=== PATIENT | female | born 1990 | race Two or more races ===

== ENCOUNTER 2019-06-01 10:52 | Inpatient (IN) | payer OTHER ==
[~2019-06-01] VITALS: Ht 149.9 cm; Wt 60.3 kg
[2019-06-27] MEDS ORDERED: IRON 100 PLUS1 EACH PO (06:12)
[2019-06-27] MEDS ORDERED: PRENATAL TABLE1 EAC1 PO (06:12)
== END 2019-06-29 11:07 | disposition home or self-care (01) | DRG 807 ==
LOC: LDR 06-27 05:07 → OB/GYN 06-27 17:23
PROVIDERS: ADMIT Obstetrics & Gynecology Maternal & Fetal Medicine
PROC: 10E0XZZ Delivery of Products of Conception, External Approach (ICD-10-PCS; principal; 2019-06-27)
PROC: 0UQMXZZ Repair Vulva, External Approach (ICD-10-PCS; 2019-06-27)
PROC: 10907ZC Drainage of Amniotic Fluid, Therapeutic from Products of Conception, Via Natural or Artificial Opening (ICD-10-PCS; 2019-06-27)
PROC: 3E033VJ Introduction of Other Hormone into Peripheral Vein, Percutaneous Approach (ICD-10-PCS; 2019-06-27)
PROC: 4A1HXCZ Monitoring of Products of Conception, Cardiac Rate, External Approach (ICD-10-PCS; 2019-06-27)
DX: O71.82 Other specified trauma to perineum and vulva (principal); Z37.0 Single live birth; Z3A.39 39 weeks gestation of pregnancy

== ENCOUNTER 2023-05-28 02:44 | Inpatient (IN) | payer OTHER ==
[~2023-05-28] VITALS: Ht 149.9 cm; Wt 54.4 kg
[~2023-05-28 02:44] MED LIST: IRON 100 PLUS1 EACH PO; PRENATAL TABLE1 EAC1 PO
== END 2023-05-29 09:38 | disposition home or self-care (01) | DRG 833 ==
LOC: LDR 02:44
PROVIDERS: ADMIT Obstetrics & Gynecology Maternal & Fetal Medicine; ATTEND Obstetrics & Gynecology Maternal & Fetal Medicine
PROC: 4A1HXCZ Monitoring of Products of Conception, Cardiac Rate, External Approach (ICD-10-PCS; principal; 2023-05-28)
DX: O60.03 Preterm labor without delivery, third trimester (principal); O99.613 Diseases of the digestive system complicating pregnancy, third trimester; K92.89 Other specified diseases of the digestive system; Z3A.28 28 weeks gestation of pregnancy; Z20.822 Contact with and (suspected) exposure to COVID-19